=== PATIENT | female | born 1970 | race Caucasian/White ===

== ENCOUNTER → 2020-10-16 | Outpatient (CLI) | payer BC ==
--- NOTE | 2020-10-16 14:06 | RAD ---
INDICATION: Osteoporosis screening. Postmenopausal screening COMPARISON: None. TECHNIQUE: Bone densitometry was performed through the lumbar spine and proximal femur. FINDINGS: Lumbar Spine: BMD: 1.1 T-Score: -0.4 Proximal Femur: BMD: 0.9 T-Score: -0.3 IMPRESSION: 1. Lumbar spine falls within the normal range. 2. Proximal femur falls within the normal range. Electronically signed by: Isauro Rosado MD (10/16/2020 2:03 PM) [id number]
== END ==
LOC: DXRAD 09:54
PROVIDERS: ATTEND Physician Assistant Medical
DX: Z13.820 Encounter for screening for osteoporosis (principal); Z78.0 Asymptomatic menopausal state
CPT/HCPCS: 77080

== ENCOUNTER → 2022-02-14 | Outpatient (CLI) | payer BC ==
--- NOTE | 2022-02-14 11:16 | RAD ---
US RENAL BILAT History: Reason: OVER ACTIVE BLADDER; DO POST VOID WELL / Spl. Instructions: / History: Comparison: None. Procedure: Transabdominal ultrasound images are obtained of the kidneys and bladder. Findings: Right kidney: measures 11.1 x 3.8 x 4.9 cm. Normal cortical echotexture. Corticomedullary differenti ation is preserved. No hydronephrosis. Left kidney: Ectopic positioning just to left of midline within the mid to lower abdomen. Measures 11 .1 x 3.7 x 3.3 cm. Normal cortical echotexture. Corticomedullary differentiation is preserved. No hy dronephrosis. Urinary bladder: No urinary bladder wall thickening. Bilateral ureteral jets are identified. Postvoid residual urinary bladder volume 16 mL. The IVC is normal caliber. The visualized abdominal aorta is normal caliber. IMPRESSION: 1. No acute renal pathology. 2. Ectopic left kidney. Electronically signed by: Bill Yost DO (02/14/2022 11:13 AM) [id number]
== END ==
LOC: US 08:42
PROVIDERS: ATTEND Physician Assistant Medical
DX: Q63.2 Ectopic kidney (principal); N32.81 Overactive bladder
CPT/HCPCS: 76770